=== PATIENT | female | born 1955 | race Caucasian/White ===

== ENCOUNTER 2023-08-15 09:38 | Emergency (ER) | payer OTHER, MEDICARE ==
[~2023-08-15] VITALS: Ht 157.5 cm; Wt 68.0 kg
[~2023-08-15 09:38] MED LIST: GUAI5SYR PO; IBUP-1969 PO; ZIT250 PO
[2023-08-15 09:46] VITALS: BP_SYST 177; PULSE 64; RESP 18; TEMP 98.3; O2SAT 99
[2023-08-15] MEDS ORDERED: FLEETMO RC (10:52)
[2023-08-15] MEDS ORDERED: PEG4000S4 PO (10:52)
[2023-08-15 10:57] VITALS: BP_SYST 177; PULSE 64; RESP 18; TEMP 98.3; O2SAT 99
== END 2023-08-15 10:57 | disposition home or self-care (01) ==
LOC: SED 09:38
DX: K59.00 Constipation, unspecified (principal)
CPT/HCPCS: 74018; 99283